=== PATIENT | female | born 1995 | race Two or more races ===

== ENCOUNTER 2020-04-28 11:55 | Outpatient (CLI) | payer OTHER | END 2020-04-28 12:09 | disposition home or self-care (01) | LOC: LAB 11:55 | PROVIDERS: ATTEND Obstetrics & Gynecology Gynecology | DX: N91.2 Amenorrhea, unspecified (principal); E03.8 Other specified hypothyroidism; E78.49 Other hyperlipidemia; Z11.3 Encounter for screening for infections with a predominantly sexual mode of transmission ==

== ENCOUNTER 2020-05-31 10:15 | Outpatient (CLI) | payer OTHER | END 2020-05-31 10:34 | disposition home or self-care (01) | LOC: SONOGRAMA 10:15 → RX STUDY 11:00 | PROVIDERS: ATTEND Obstetrics & Gynecology Gynecology | DX: R10.2 Pelvic and perineal pain (principal); N91.4 Secondary oligomenorrhea; N91.0 Primary amenorrhea ==

== ENCOUNTER 2020-05-31 12:52 | Outpatient (CLI) | payer OTHER | END 2020-05-31 13:01 | disposition home or self-care (01) | LOC: LAB 12:52 | PROVIDERS: ATTEND Obstetrics & Gynecology Gynecology | DX: R10.2 Pelvic and perineal pain (principal); R91.8 Other nonspecific abnormal finding of lung field ==

== ENCOUNTER 2020-06-29 12:35 | Outpatient (CLI) | payer OTHER | END 2020-06-29 12:37 | disposition home or self-care (01) | LOC: LAB 12:35 | PROVIDERS: ATTEND Obstetrics & Gynecology Gynecology | DX: D64.89 Other specified anemias (principal); I10 Essential (primary) hypertension; N39.0 Urinary tract infection, site not specified; N91.2 Amenorrhea, unspecified ==

== ENCOUNTER 2020-07-12 07:07 | Day surgery (SDC) | payer OTHER ==
[2020-07-12] MEDS ORDERED: PERCOCET 5-3251 EACH PO (11:53)
== END 2020-07-12 15:25 | disposition home or self-care (01) ==
LOC: CIR.AMB 07:07 → ADM 08-05 10:00
PROVIDERS: ATTEND Obstetrics & Gynecology Gynecology
DX: N84.0 Polyp of corpus uteri (principal); K66.0 Peritoneal adhesions (postprocedural) (postinfection); K66.8 Other specified disorders of peritoneum; N70.11 Chronic salpingitis; Z20.822 Contact with and (suspected) exposure to COVID-19